=== PATIENT | female | born 2005 | race Caucasian/White ===

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

== ENCOUNTER 2024-08-02 21:20 | Emergency (ER) | payer OTHER ==
[2024-08-02] MEDS ORDERED: ACETAMINOPHEN 325 MG TABLET ONE (22:00)
[2024-08-02 22:28] LABS: Specific Gravity < 1.005 (1.005-1.030)
[2024-08-02 22:46] LABS: Specific Gravity < 1.005 (1.005-1.030); Sqamous Epithelial <5 /HPF (None Seen); Urine Bacteria <20 /HPF (<20); Urine Bilirubin NEGATIVE (Negative); Urine Blood 1+ (Negative); Urine Clarity Extremely Turbid (Clear); Urine Color Colorless (Yellow); Urine Crystals Unidentified Few /HPF (None Seen); Urine Culture Reflex Order REFLEXED; Urine Glucose NEGATIVE (Negative); Urine Ketones NEGATIVE (Negative); Urine Microscopic Reflex YN ORDER UMIC; Urine Nitrite NEGATIVE (Negative); Urine Protein NEGATIVE (Negative); Urine RBC <5 /HPF (None Seen); Urine Urobilinogen Normal (Normal)
[2024-08-02] MEDS ORDERED: IBUPROFEN 200 MG TAB PO ONE (23:14)
[2024-08-02] MEDS ORDERED: IBUPROFEN 400 MG TAB ONE (23:14)
[2024-08-02] MEDS ORDERED: NITROFURAN MACRO 100 MG CAP PO ONE (23:15)
[2024-08-02] MEDS ORDERED: PHENAZOPYRIDINE 100MG TAB PO ONE (23:15)
--- NOTE | 2024-08-02 23:21 | EDPHYS ---
Physician Documentation [facility] Name: Kimmy Oconnor Age: 19 yrs Sex: Female : 2005 Arrival Date: 08/02/2024 Time: 21:20 Bed 13 Private MD: ED Physician Walker Bryson HPI: 08/02 22:00 This 19 yrs old Female presents to ER via Ambulatory with complaints of Urinary Problem.cp 22:00 The patient presents with urinary symptoms, dysuria. cp 22:00 Onset: The symptoms/episode began/occurred yesterday, and became worse today. cp Associated signs and symptoms: Pertinent positives: nausea, lower abdomen pain, Pertinent negatives: fever, vomiting, back pain. 22:00 Severity of symptoms: in the emergency department the symptoms are unchanged, despite cp home interventions. 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 - Infectious Disease History:: Denies. - Social history:: Smoking status: Patient denies any tobacco usage or history of. ROS: 22:05 Constitutional: Negative for body aches, chills, fever, poor PO intake, cp 22:05 Eyes: Negative for injury, pain, redness, and discharge, cp 22:05 ENT: Negative for drainage from ear(s), ear pain, sore throat, difficulty swallowing, difficulty handling secretions, 22:05 Respiratory: Negative for cough, shortness of breath, wheezing, 22:05 Abdomen/GI: Positive for abdominal pain, nausea, of the suprapubic area, right lower quadrant and left lower quadrant, Negative for vomiting, diarrhea, constipation, 22:05 : Positive for urinary symptoms, burning with urination, Negative for flank pain, 22:05 Neuro: Negative for altered mental status, headache, weakness, 22:05 All other systems are negative, Exam: 22:10 Constitutional: The patient appears in no acute distress, alert, awake, non-toxic, well cp developed, well nourished, 22:10 Head/Face: Normocephalic, atraumatic. cp 22:10 Cardiovascular: Rate: normal, 22:10 Respiratory: the patient does not display signs of respiratory distress, Respirations: normal, no use of accessory muscles, no retractions, labored breathing, is not present, Breath sounds: are clear throughout, 22:10 Abdomen/GI: Inspection: abdomen appears normal, Palpation: soft, in all quadrants, mild abdominal tenderness, in the suprapubic area, right lower quadrant and left lower quadrant, 22:10 Back: CVA tenderness, is absent, Vital Signs: 21:55 BP 119 / 70; Pulse 82; Resp 17 S; Temp 98.4(O); Pulse Ox 98% on R/A; Weight 57.15 kg; ha1 Height 5 ft. 5 in. ; Pain 4/10; 23:37 BP 131 / 72; Pulse 77; Resp 17 S; Pulse Ox 98% on R/A; ha1 21:55 Body Mass Index 20.97 (57.15 kg, 165.1 cm) ha1 21:55 Pain Scale: Adult ha1 MDM: 21:47 Medical Screening Exam initiated cp 22:00 Differential diagnosis: pelvic inflammatory disease, urinary tract infection, sepsis, cp kidney stone. 23:20 Data reviewed: vital signs, nurses notes, lab test result(s), and as a result, I will cp discharge patient. 23:20 Counseling: I had a detailed discussion with the patient and/or guardian regarding the cp historical points, exam findings, and any diagnostic results supporting the discharge/admit diagnosis, lab results, to return to the emergency department if symptoms worsen or persist or if there are any questions or concerns that arise at home. 23:20 Response to treatment: the patient's symptoms have mildly improved after treatment, and cp as a result, I will discharge patient. 08/02 21:48 Order name: Urinalysis w/ reflexes; Complete Time: 22:48 cp 08/02 21:48 Order name: Test, Urine; Complete Time: 22:48 cp 08/02 22:49 Order name: Urine Culture EDMS Administered Medications: 22:14 Drug: Acetaminophen PO 650 mg PO once Route: PO; ha1 23:19 Drug: Nitrofurantoin PO 100 mg PO once; administer with food Route: PO; br2 23:20 Drug: Phenazopyridine PO 200 mg PO once Route: PO; br2 23:20 Drug: Ibuprofen PO 600 mg PO once Route: PO; br2 Disposition Summary: 08/02/24 23:21 Discharge Ordered Notes: Location: Home cp Problem: new cp Symptoms: have improved cp Condition: Stable cp Diagnosis - UTI/ Urinary tract infection, site not specified cp Followup: cp - With: Private Physician - When: 2 - 3 days - Reason: Worsening of condition Discharge Instructions: - Discharge Summary Sheet cp - Urinary Tract Infection, Adult cp Forms: - Medication Reconciliation Form cp - Antibiotic Education cp - Prescription Opioid Use cp - Patient Portal Instructions cp - Leadership Thank You Letter cp Prescriptions: - Pyridium 200 mg Oral tablet - take 1 tablet ORAL route every 8 hours for 2 days; 6 tablet; Refills: 0, cp Product Selection Permitted - Zofran 4 mg Oral Tablet - take 1 tablet ORAL route every 12 hours As needed; 20 tablet; Refills: 0, cp Product Selection Permitted - Macrobid 100 mg Oral Capsule - take 1 capsule ORAL route every 12 hours for 7 days; 14 capsule; Refills: 0, cp Product Selection Permitted Signatures: Dispatcher [employer] EDWalker Linn PA PA cp Ayala, Heidy RN RN ha1 Jennifer Daniel RN RN br2
--- NOTE | 2024-08-02 23:21 | ER ---
[facility]urse[facility] Name: Kimmy Oconnor Age: 19 yrs Sex: Female : 2005 Arrival Date: 08/02/2024 Time: 21:20 Bed 13 Private MD: Diagnosis: UTI/ Urinary tract infection, site not specified Presentation: 08/02 21:55 Chief complaint: Patient states: BURNING WITH URINATION. LOWER ABDOMINAL CRAMPING. ha1 Coronavirus screen: Vaccine status: Patient reports being unvaccinated. Ebola Screen: No symptoms or risks identified at this time. Initial Sepsis Screen: Does the patient meet any 2 criteria? No. Patient's initial sepsis screen is negative. Does the patient have a suspected source of infection? No. Patient's initial sepsis screen is negative. Risk Assessment: Do you want to hurt yourself or someone else? Patient reports no desire to harm self or others. Onset of symptoms was August 02, 2024. 21:55 Method Of Arrival: Ambulatory ha1 21:55 Acuity: RAJWINDER 4 ha1 Triage Assessment: 21:58 General: Appears uncomfortable, Behavior is calm, cooperative. Pain: Complains of pain ha1 in pelvis Pain does not radiate. Pain currently is 4 out of 10 on a pain scale. Quality of pain is described as aching. Neuro: Level of Consciousness is awake, alert, obeys commands, Oriented to person, place, time, situation. Cardiovascular: Patient's skin is warm and dry. Respiratory: Airway is patent Respiratory effort is even, unlabored, Respiratory pattern is regular, symmetrical. : Reports burning with urination. 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 - Infectious Disease History:: Denies. - Social history:: Smoking status: Patient denies any tobacco usage or history of. Screenin:36 [facility] ED Fall Risk Assessment (Adult) History of falling in the last 3 months, ha1 including since admission No falls in past 3 months (0 pts) Confusion or Disorientation No (0 pts) Intoxicated or Sedated No (0 pts) Impaired Gait No (0 pts) Mobility Assist Device Used No (0 pt) Altered Elimination No (0 pt) Score/Fall Risk Level 0 - 2 = Low Risk Oriented to surroundings, Maintained a safe environment, Educated pt \T\ family on fall prevention, incl call for assistance when getting out of bed, Hourly rounding (assess needs \T\ fall precautionary measures) done. Abuse screen: Denies threats or abuse. Denies injuries from another. Nutritional screening: No deficits noted. Tuberculosis screening: No symptoms or risk factors identified. Assessment: 21:45 Reassessment: see triage assessment. ha1 23:37 Reassessment: Patient and/or family updated on plan of care and expected duration. Pain ha1 level reassessed. Patient is alert, oriented x 3, equal unlabored respirations, skin warm/dry/pink. Patient states feeling better. Patient states symptoms have improved. Vital Signs: 21:55 BP 119 / 70; Pulse 82; Resp 17 S; Temp 98.4(O); Pulse Ox 98% on R/A; Weight 57.15 kg; ha1 Height 5 ft. 5 in. ; Pain 4/10; 23:37 BP 131 / 72; Pulse 77; Resp 17 S; Pulse Ox 98% on R/A; ha1 21:55 Body Mass Index 20.97 (57.15 kg, 165.1 cm) ha1 21:55 Pain Scale: Adult ha1 ED Course: 21:23 Patient arrived in ED. im 21:28 Walker Delvalle PA is PHCP. cp 21:28 Walker Bryson MD is Attending Physician. cp 21:45 Arm band placed on right wrist. ha1 21:58 Triage completed. ha1 22:07 Test, Urine Sent. af3 22:07 Urinalysis w/ reflexes Sent. af3 22:20 Patient has correct armband on for positive identification. Placed in gown. Bed in low ha1 position. Call light in reach. Side rails up X 1. Adult w/ patient. 22:28 Jennifer Daniel, ISABELLE is Primary Nurse. br2 23:36 No provider procedures requiring assistance completed. Patient did not have IV access ha1 during this emergency room visit. 23:39 Provided Education on: medication administration . ha1 Administered Medications: 22:14 Drug: Acetaminophen PO 650 mg PO once Route: PO; ha1 23:19 Drug: Nitrofurantoin PO 100 mg PO once; administer with food Route: PO; br2 23:20 Drug: Phenazopyridine PO 200 mg PO once Route: PO; br2 23:20 Drug: Ibuprofen PO 600 mg PO once Route: PO; br2 Medication: 23:38 VIS not applicable for this client. ha1 Outcome: 23:21 Discharge ordered by . cp 23:38 Discharged to home ambulatory, with family, ha1 23:38 Condition: stable 23:38 Discharge instructions given to patient, Instructed on discharge instructions, follow up and referral plans. medication usage, Demonstrated understanding of instructions, follow-up care, medications, Prescriptions given X 3, 23:39 Patient left the ED. ha1 Signatures: Walker Delvalle PA PA cp Ayala, Heidy RN RN ha1 Yanci Almendarez Belinda, RN RN br2 Cristina Escamilla 3
[2024-08-02 23:45] VITALS: TEMP 98.4; O2SAT 98
[2024-08-02 23:46] VITALS: BP 131/72
== END 2024-08-02 23:39 | disposition home or self-care (01) ==
LOC: ER 21:20
DX: N39.0 Urinary tract infection, site not specified (principal)
CPT/HCPCS: 81001; 81025; 87077; 87086; 87088; 87186; 99283